=== PATIENT | male | born 1955 | race Native Hawaiian/Other Pacific Islander ===

== ENCOUNTER 2016-12-21 09:04 | Outpatient (CLI) | payer BC | END 2016-12-21 19:21 | disposition home or self-care (01) | LOC: RESP 09:04 | DX: J44.9 Chronic obstructive pulmonary disease, unspecified (principal); F17.210 Nicotine dependence, cigarettes, uncomplicated | CPT/HCPCS: 94664 ==

== ENCOUNTER 2017-05-24 07:53 | Outpatient (CLI) | payer BC ==
[2017-05-24 08:52] LABS: PLATELET COUNT 153 K/uL (142-355)
[2017-05-24 09:44] LABS: POTASSIUM 3.9 mmol/L (3.6-5.2); SODIUM 133 mmol/L (136-145)
== END 2017-05-24 20:17 | disposition home or self-care (01) ==
LOC: RAD 07:53
PROVIDERS: Internal Medicine
DX: J44.9 Chronic obstructive pulmonary disease, unspecified (principal); R06.02 Shortness of breath
CPT/HCPCS: 36415; 36600; 80053; 82805; 85027

== ENCOUNTER 2017-07-23 14:54 | Outpatient (CLI) | payer BC | END 2017-07-23 21:31 | disposition home or self-care (01) | LOC: RESP 14:54 | DX: J96.92 Respiratory failure, unspecified with hypercapnia (principal) | CPT/HCPCS: 36600; 82805 ==

== ENCOUNTER 2017-08-16 10:16 | Outpatient (CLI) | payer BC ==
[2017-08-16 10:46] LABS: PLATELET COUNT 169 K/uL (142-355)
== END 2017-08-16 23:34 | disposition home or self-care (01) ==
LOC: LABW 10:16
DX: Z00.00 Encounter for general adult medical examination without abnormal findings (principal); Z12.5 Encounter for screening for malignant neoplasm of prostate; E29.1 Testicular hypofunction; E55.9 Vitamin D deficiency, unspecified; R53.81 Other malaise; R68.82 Decreased libido; E53.8 Deficiency of other specified B group vitamins
CPT/HCPCS: 36415; 82306; 82627; 84153; 84305; 84402; 84403; 84439; 84443; 84481; 85027

== ENCOUNTER 2017-10-28 10:32 | Outpatient (CLI) | payer BC | END 2017-10-28 19:29 | disposition home or self-care (01) | LOC: RAD 10:32 | DX: A31.0 Pulmonary mycobacterial infection (principal) ==

== ENCOUNTER 2017-12-23 10:49 | Outpatient (CLI) | payer BC | END 2017-12-23 23:17 | disposition home or self-care (01) | LOC: RESP 10:49 | DX: J96.92 Respiratory failure, unspecified with hypercapnia (principal) | CPT/HCPCS: 36600; 82805 ==